=== PATIENT | male | born 1965 | race Caucasian/White ===

== ENCOUNTER → 2019-12-14 | Outpatient (CLI) | payer OTHER ==
[~2019-12-14] MED LIST: BLOOD PRESSURE PILL; CIPRO500 MG PO; FLAGYL500 MG PO; FLEXERIL PO; HYDROCODONE-AP1 EAC6 PO; NORCO 5-325 TA1 EACH PO
== END ==
LOC: M.CT 10:19
DX: T78.3XXA Angioneurotic edema, initial encounter (principal)